=== PATIENT | female | born 1970 | race Caucasian/White ===

== ENCOUNTER 2020-12-29 11:12 | Inpatient (IN) | payer MEDICAID ==
[~2020-12-29] VITALS: Ht 160 cm; Wt 103.2 kg
[~2020-12-29 11:12] MED LIST: BACL-63 PO; CARI350T22 PO; CLON-857 PO; GABA-339 PO; OXY20CRT PO
[2020-12-29] MEDS ORDERED: ACETAMINOPHEN 325 MG TAB PO ONE (12:00)
[2020-12-29] MEDS ORDERED: SODIUM CHLORIDE 0.9% 1,000 ML IV ONE (12:00)
[2020-12-29] MEDS ORDERED: KETOROLAC TROMETH 30 MG/ML 1ML VIAL IV ONE (12:00)
[2020-12-29] MEDS ORDERED: cefTRIAXone 1GM/50ML D5W 50 ML IV ONE (12:00)
[2020-12-29 13:49] LABS: Urine Bacteria FEW /hpf (None Seen); Urine Blood TRACE /uL (Negative); Urine Specific Gravity 1.015 (1.001-1.035); Urine WBC 96 /hpf (0 - 5)
[2020-12-29] MEDS ORDERED: HYDROmorphone HCL 2 MG/ML VL IV ONE ×2 (14:00→18:30)
[2020-12-29 14:05] LABS: Basophils # (auto) 0.1 10 ^3/uL (0-0.2); Basophils % (auto) 1.1 % (0.0-2.0); Eosinophils # (auto) 0.2 10 ^3/uL (0-0.8); Eosinophils % (auto) 1.9 % (0.0-7.0); Hematocrit 37.8 % (36.0-46.0); Hemoglobin 12.3 g/dL (12.2-16.2); Lymphocytes # (auto) 1.2 10 ^3/uL (0.4-5.4); Lymphocytes % (auto) 14.5 % (10.0-50.0); Mean Corpuscular Hemoglobin 24.4 pg (28.0-32.0); Mean Corpuscular Hgb Conc. 32.5 g/dL (32.0-36.0); Monocytes # (auto) 0.6 10 ^3/uL (0-1.3); Monocytes % (auto) 7.8 % (0.0-12.0); Neutrophils # (auto) 6.2 10 ^3/uL (1.6-8.6); Neutrophils % (auto) 74.7 % (37.0-80.0); Red Blood Cells 5.05 10^6/uL (4.0-5.20); Red Cell Distribution Width 15.9 % (11.8-14.3); White Blood Cell 8.3 10^3/uL (4.4-10.8)
[2020-12-29 14:19] LABS: Chloride 107 mmol/L (98-107); Potassium 3.9 mmol/L (3.5-5.1); Sodium 136 mmol/L (136-145)
[2020-12-29 14:28] LABS: Alanine Aminotransferase 23 U/L (13-56); Albumin 2.9 g/dL (3.4-5.0); Alkaline Phosphatase 116 U/L (45-117); Anion Gap 3 (5-15); Aspartate Aminotransferase 15 U/L (15-37); BUN/Creatinine Ratio 29.3; Bilirubin, Total 0.4 mg/dL (0.2-1.0); Blood Urea Nitrogen 17 mg/dL (7-18); Calcium 9.9 mg/dL (8.5-10.1); Carbon Dioxide 26 mmol/L (21-32); GFR African American 141 mL/min; GFR Non-African American 116 mL/min; Glucose 99 mg/dL (74-106); Total Protein 8.3 g/dL (6.4-8.2)
[2020-12-29] MEDS: cefTRIAXone 1GM/50ML D5W 50 ML IV ONE (14:45)
[2020-12-29] MEDS ORDERED: LACTATED RINGER'S 1,000 ML IV ONE (16:30)
[2020-12-29] MEDS ORDERED: NITROGLYCERIN 0.4 MG SL TAB SL PRN ×2 (16:30→18:30)
[2020-12-29] MEDS ORDERED: MORPHINE SULFATE INJECTION 2 MG/ML SYRG IV PRN ×2 (16:30→18:30)
[2020-12-29] MEDS ORDERED: HYDROcodone-ACET 5/325MG TAB PO PRN (18:30)
[2020-12-29] MEDS ORDERED: PIPERACILLIN-TAZOB 3.375GM 100 ML IV ONE (18:30)
[2020-12-29] MEDS ORDERED: DOCUSATE SOD 100 MG CAP PO PRN (18:30)
[2020-12-29] MEDS ORDERED: ACETAMINOPHEN 325 MG TAB PO PRN (18:30)
[2020-12-29] MEDS ORDERED: LORazepam 0.5 MG TAB PO PRN (18:30)
[2020-12-29] MEDS ORDERED: VANCOMYCIN PER PHARMACY 0 MG IV SCH (18:30)
[2020-12-29] MEDS ORDERED: ENOXAPARIN SOD 100 MG/1 ML SYRINGE SC ONE (18:30)
[2020-12-29] MEDS ORDERED: LORazepam 2MG/ML-1ML VIAL IV PRN (18:30)
[2020-12-29] MEDS ORDERED: ALUM & MAG HYDROX-SIMETH LIQ(MAALOX) 30 ML PO PRN (18:30)
[2020-12-29] MEDS: SODIUM CHLORIDE 0.9% 1,000 ML IV SCH (19:14)
[2020-12-29 20:00] LABS: Amphetamine Screen, Urine NEGATIVE (NEGATIVE); Barbiturate Scree,Urine NEGATIVE (NEGATIVE); Cannabinoid Screen, Urine NEGATIVE (NEGATIVE); Cocaine Screen, Urine NEGATIVE (NEGATIVE); Opiate Scree,Urine NEGATIVE (NEGATIVE); Phencyclidine Screen, Urine NEGATIVE (NEGATIVE)
[2020-12-29 20:09] LABS: Alcohol, Urine < 3.0 mg/dL (0-10)
[2020-12-29 20:22] LABS: Benzodiazephine Screen, Urine POSITIVE (NEGATIVE)
[2020-12-29] MEDS: ATORVASTATIN 20 MG TAB PO SCH (22:00)
[2020-12-29] MEDS: FAMOTIDINE (10MG/ML) 2ML VL IV SCH (22:00)
[2020-12-29] MEDS: VANCOMYCIN 1GM/250ML 250 ML IV SCH (23:00)
[2020-12-30 01:21] LABS: Cholesterol 154 mg/dL (< 200); HDL Cholesterol 41 mg/dL (40-59); LDL Cholesterol 100 mg/dL (< 100); Triglycerides 91 mg/dL (< 150)
[2020-12-30] MEDS: MORPHINE SULFATE INJECTION 2 MG/ML SYRG IV PRN ×2 (05:31→09:02)
[2020-12-30] MEDS: PIPERACILLIN-TAZOB 3.375GM 100 ML IV SCH ×4 (06:00→19:30)
[2020-12-30] MEDS: ENOXAPARIN SOD 100 MG/1 ML SYRINGE SC SCH ×2 (06:48→18:23)
[2020-12-30 07:53] LABS: Eosinophils # (auto) 0.3 10 ^3/uL (0-0.8); Monocytes # (auto) 0.5 10 ^3/uL (0-1.3); Neutrophils # (auto) 4.1 10 ^3/uL (1.6-8.6); White Blood Cell 5.9 10^3/uL (4.4-10.8)
[2020-12-30 07:55] LABS: Basophils # (auto) 0 10 ^3/uL (0-0.2); Basophils % (auto) 0.7 % (0.0-2.0); Eosinophils % (auto) 4.8 % (0.0-7.0); Hematocrit 34.2 % (36.0-46.0); Hemoglobin 10.9 g/dL (12.2-16.2); Lymphocytes % (auto) 17.2 % (10.0-50.0); Mean Corpuscular Hemoglobin 24.6 pg (28.0-32.0); Mean Corpuscular Hgb Conc. 32.1 g/dL (32.0-36.0); Mean Corpuscular Volume 76.8 fL (80.0-100.0); Neutrophils % (auto) 69.3 % (37.0-80.0); Red Blood Cells 4.45 10^6/uL (4.0-5.20); Red Cell Distribution Width 16.2 % (11.8-14.3)
[2020-12-30 08:04] LABS: Albumin 2.5 g/dL (3.4-5.0); Calcium 9.4 mg/dL (8.5-10.1); Magnesium 2.6 mg/dL (1.6-2.6); Potassium 3.9 mmol/L (3.5-5.1)
[2020-12-30 08:08] LABS: BUN/Creatinine Ratio 29.8; Bilirubin, Total 0.4 mg/dL (0.2-1.0); Phosphorus 3.3 mg/dL (2.5-4.90); Total Protein 7.3 g/dL (6.4-8.2)
[2020-12-30 08:12] LABS: INR 1.22 (0.9-1.15); Partial Thromboplastin Time 40.2 sec (23.6-33.0)
[2020-12-30] MEDS: SODIUM CHLORIDE 0.9% 1,000 ML IV SCH (08:40)
[2020-12-30] MEDS: ONDANSETRON HCL 4 MG/2 ML VIAL IV PRN (08:57)
[2020-12-30] MEDS: VANCOMYCIN 1GM/250ML 250 ML IV SCH ×2 (12:27→18:23)
[2020-12-30] MEDS: FAMOTIDINE (10MG/ML) 2ML VL IV SCH ×2 (12:27→22:45)
[2020-12-30] MEDS: ASPirin 81 mg TAB PO SCH (12:28)
[2020-12-30] MEDS: DULoxetine HCL 30 MG CAP PO SCH (12:28)
[2020-12-30] MEDS: GABAPENTIN 300 MG CAP PO SCH ×2 (13:49→22:45)
[2020-12-30] MEDS: BACLOFEN 10 MG TAB PO SCH ×2 (13:49→22:45)
[2020-12-30] MEDS: HYDROmorphone HCL 2 MG/ML VL IV PRN ×3 (13:49→22:47)
[2020-12-30 13:50] VITALS: BP 104/60
[2020-12-30 22:00] VITALS: BP 99/57
[2020-12-30] MEDS: ATORVASTATIN 20 MG TAB PO SCH (22:45)
[2020-12-31] MEDS: PIPERACILLIN-TAZOB 3.375GM 100 ML IV SCH ×5 (00:33→23:03)
[2020-12-31] MEDS: HYDROmorphone HCL 2 MG/ML VL IV PRN ×5 (02:54→21:31)
[2020-12-31] MEDS: VANCOMYCIN 1GM/250ML 250 ML IV SCH ×2 (03:00→13:00)
[2020-12-31] MEDS: SODIUM CHLORIDE 0.9% 1,000 ML IV SCH ×2 (04:11→21:04)
[2020-12-31] MEDS: BACLOFEN 10 MG TAB PO SCH ×3 (07:02→21:04)
[2020-12-31] MEDS: GABAPENTIN 300 MG CAP PO SCH ×3 (07:02→21:05)
[2020-12-31] MEDS: ENOXAPARIN SOD 100 MG/1 ML SYRINGE SC SCH ×2 (07:03→18:37)
[2020-12-31 09:00] VITALS: BP 133/69
[2020-12-31] MEDS: FAMOTIDINE (10MG/ML) 2ML VL IV SCH ×2 (11:12→21:04)
[2020-12-31] MEDS: DULoxetine HCL 30 MG CAP PO SCH (11:13)
[2020-12-31] MEDS: ASPirin 81 mg TAB PO SCH (11:13)
[2020-12-31 13:00] VITALS: BP 129/61
[2020-12-31] MEDS ORDERED: VANCOMYCIN 1GM/250ML 250 ML IV SCH (16:00)
[2020-12-31 17:00] VITALS: BP 142/69
[2020-12-31] MEDS: ATORVASTATIN 20 MG TAB PO SCH (21:05)
[2020-12-31 22:00] VITALS: BP 95/56
[2020-12-31] MEDS: oxyCODONE ER 20 MG TAB PO SCH (22:29)
[2021-01-01] MEDS: HYDROmorphone HCL 2 MG/ML VL IV PRN ×6 (03:04→19:04)
[2021-01-01 05:00] VITALS: BP 99/54
[2021-01-01] MEDS: PIPERACILLIN-TAZOB 3.375GM 100 ML IV SCH ×4 (05:30→23:06)
[2021-01-01] MEDS: GABAPENTIN 300 MG CAP PO SCH ×3 (05:39→21:07)
[2021-01-01] MEDS: BACLOFEN 10 MG TAB PO SCH ×3 (05:39→21:06)
[2021-01-01] MEDS: ENOXAPARIN SOD 100 MG/1 ML SYRINGE SC SCH ×2 (05:39→19:04)
[2021-01-01 07:15] LABS: Basophils # (auto) 0 10 ^3/uL (0-0.2); Eosinophils # (auto) 0.3 10 ^3/uL (0-0.8); Eosinophils % (auto) 6.9 % (0.0-7.0); Hematocrit 30.8 % (36.0-46.0); Hemoglobin 10.3 g/dL (12.2-16.2); Lymphocytes # (auto) 0.9 10 ^3/uL (0.4-5.4); Lymphocytes % (auto) 21.5 % (10.0-50.0); Mean Corpuscular Hgb Conc. 33.3 g/dL (32.0-36.0); Mean Corpuscular Volume 74.9 fL (80.0-100.0); Monocytes # (auto) 0.4 10 ^3/uL (0-1.3); Monocytes % (auto) 8.7 % (0.0-12.0); Neutrophils # (auto) 2.6 10 ^3/uL (1.6-8.6); Neutrophils % (auto) 61.9 % (37.0-80.0); Nucleated Red Blood Cells % 0.2 %; Red Blood Cells 4.11 10^6/uL (4.0-5.20); Red Cell Distribution Width 15.8 % (11.8-14.3); White Blood Cell 4.3 10^3/uL (4.4-10.8)
[2021-01-01 07:16] LABS: INR 1.17 (0.9-1.15)
[2021-01-01 08:29] LABS: BUN/Creatinine Ratio 15.1; Calcium 9.1 mg/dL (8.5-10.1); Magnesium 2.5 mg/dL (1.6-2.6); Potassium 3.9 mmol/L (3.5-5.1)
[2021-01-01] MEDS ORDERED: ROPIVACAINE 0.5% (5MG/ML) 20ML AMPULE IJ ONE (08:35)
[2021-01-01] MEDS ORDERED: ceFAZolin 1GM VL ONE ×2 (08:35→09:27)
[2021-01-01] MEDS ORDERED: fentaNYL CITRATE 100 MCG/2 ML VL ONE (08:50)
[2021-01-01] MEDS ORDERED: MIDAZOLAM HCL 2MG/2ML 2ml VIAL (1mg/ml) ONE (08:50)
[2021-01-01] MEDS ORDERED: MEPERIDINE HCL (25 MG/ML) 1ML VIAL ONE (08:50)
[2021-01-01] MEDS ORDERED: LABETALOL HCL 5 MG/ML 4ML SYRINGE IV PRN ×2 (09:00→09:45)
[2021-01-01] MEDS ORDERED: ONDANSETRON HCL 4 MG/2 ML VIAL IV PRN ×2 (09:00→09:45)
[2021-01-01] MEDS ORDERED: MIDAZOLAM HCL 2MG/2ML 2ml VIAL (1mg/ml) IV PRN ×2 (09:00→09:45)
[2021-01-01] MEDS ORDERED: HYDROmorphone HCL 2 MG/ML VL IV PRN (09:00)
[2021-01-01] MEDS ORDERED: hydrALAZINE HCL 20 MG/ML VL IV PRN ×2 (09:00→09:45)
[2021-01-01] MEDS ORDERED: MORPHINE SULFATE 4 MG/ML SYR/VIAL IV PRN ×2 (09:00→09:45)
[2021-01-01] MEDS ORDERED: ePHEDrine SULFATE 50 MG/ML AMP IV PRN ×2 (09:00→09:45)
[2021-01-01] MEDS ORDERED: DexAMETHasone SOD PHOS 10MG/1ML VIAL INJ ONE (09:24)
[2021-01-01] MEDS ORDERED: PROPOFOL 10 MG/ML 20 ML IV ONE (09:24)
[2021-01-01] MEDS ORDERED: SILVER SULFADIAZINE 1 % TOPICAL CREAM 50GM TOP ONE (09:29)
[2021-01-01] MEDS ORDERED: fentaNYL CITRATE 100 MCG/2 ML VL IV PRN (09:45)
[2021-01-01 10:54] VITALS: BP 114/56
[2021-01-01] MEDS: DULoxetine HCL 30 MG CAP PO SCH (11:29)
[2021-01-01] MEDS: FAMOTIDINE (10MG/ML) 2ML VL IV SCH ×2 (11:29→21:06)
[2021-01-01] MEDS: VANCOMYCIN 1GM/250ML 250 ML IV SCH (11:30)
[2021-01-01] MEDS: oxyCODONE ER 20 MG TAB PO SCH ×2 (11:30→21:07)
[2021-01-01 13:00] VITALS: BP 114/56
[2021-01-01] MEDS: SODIUM CHLORIDE 0.9% 1,000 ML IV SCH (13:06)
[2021-01-01 17:00] VITALS: BP 136/74
[2021-01-01] MEDS: ATORVASTATIN 20 MG TAB PO SCH (21:07)
[2021-01-01 22:00] VITALS: BP 138/62
[2021-01-02] MEDS: SODIUM CHLORIDE 0.9% 1,000 ML IV SCH ×2 (00:54→05:39)
[2021-01-02] MEDS: HYDROmorphone HCL 2 MG/ML VL IV PRN ×4 (01:04→19:11)
[2021-01-02] MEDS: VANCOMYCIN 1GM/250ML 250 ML IV SCH ×2 (03:02→19:10)
[2021-01-02 05:00] VITALS: BP 127/58
[2021-01-02] MEDS: GABAPENTIN 300 MG CAP PO SCH ×3 (05:39→21:48)
[2021-01-02] MEDS: BACLOFEN 10 MG TAB PO SCH ×3 (05:39→21:48)
[2021-01-02] MEDS: PIPERACILLIN-TAZOB 3.375GM 100 ML IV SCH ×3 (05:39→18:33)
[2021-01-02] MEDS: ENOXAPARIN SOD 100 MG/1 ML SYRINGE SC SCH ×2 (05:40→18:33)
[2021-01-02 07:16] LABS: Basophils # (auto) 0 10 ^3/uL (0-0.2); Basophils % (auto) 0.5 % (0.0-2.0); Eosinophils # (auto) 0 10 ^3/uL (0-0.8); Eosinophils % (auto) 0.4 % (0.0-7.0); Hematocrit 30.3 % (36.0-46.0); Hemoglobin 9.8 g/dL (12.2-16.2); Lymphocytes % (auto) 14.7 % (10.0-50.0); Mean Corpuscular Hemoglobin 24.4 pg (28.0-32.0); Mean Corpuscular Hgb Conc. 32.4 g/dL (32.0-36.0); Mean Corpuscular Volume 75.2 fL (80.0-100.0); Monocytes # (auto) 0.6 10 ^3/uL (0-1.3); Monocytes % (auto) 8.3 % (0.0-12.0); Neutrophils # (auto) 5.1 10 ^3/uL (1.6-8.6); Neutrophils % (auto) 76.1 % (37.0-80.0); Nucleated Red Blood Cells % 0.1 %; Red Blood Cells 4.04 10^6/uL (4.0-5.20); Red Cell Distribution Width 15.8 % (11.8-14.3); White Blood Cell 6.7 10^3/uL (4.4-10.8)
[2021-01-02 07:33] LABS: Calcium 8.9 mg/dL (8.5-10.1); Potassium 3.5 mmol/L (3.5-5.1)
[2021-01-02 07:35] LABS: BUN/Creatinine Ratio 19.7
[2021-01-02] MEDS: FAMOTIDINE (10MG/ML) 2ML VL IV SCH ×2 (08:48→21:48)
[2021-01-02] MEDS: DULoxetine HCL 30 MG CAP PO SCH (08:49)
[2021-01-02] MEDS: oxyCODONE ER 20 MG TAB PO SCH ×2 (08:59→21:52)
[2021-01-02 09:00] VITALS: BP 117/56
[2021-01-02 13:00] VITALS: BP 95/41
[2021-01-02] MEDS: ONDANSETRON HCL 4 MG/2 ML VIAL IV PRN (13:01)
[2021-01-02 17:00] VITALS: BP 137/55
[2021-01-02] MEDS: ATORVASTATIN 20 MG TAB PO SCH (21:49)
[2021-01-02 22:00] VITALS: BP 106/60
[2021-01-03] MEDS: HYDROmorphone HCL 2 MG/ML VL IV PRN ×4 (01:13→19:24)
[2021-01-03 04:44] VITALS: BP 101/59
[2021-01-03] MEDS: GABAPENTIN 300 MG CAP PO SCH ×3 (06:04→21:07)
[2021-01-03] MEDS: BACLOFEN 10 MG TAB PO SCH ×3 (06:05→21:07)
[2021-01-03] MEDS: ENOXAPARIN SOD 100 MG/1 ML SYRINGE SC SCH ×2 (06:06→18:15)
[2021-01-03] MEDS: PIPERACILLIN-TAZOB 3.375GM 100 ML IV SCH ×4 (06:06→18:15)
[2021-01-03 06:31] LABS: Hematocrit 29.1 % (36.0-46.0); Hemoglobin 9.4 g/dL (12.2-16.2)
[2021-01-03 09:00] VITALS: BP 117/79
[2021-01-03] MEDS: FAMOTIDINE (10MG/ML) 2ML VL IV SCH ×2 (09:48→21:07)
[2021-01-03] MEDS: oxyCODONE ER 20 MG TAB PO SCH ×2 (09:48→21:08)
[2021-01-03] MEDS: DULoxetine HCL 30 MG CAP PO SCH (09:48)
[2021-01-03] MEDS: VANCOMYCIN 1GM/250ML 250 ML IV SCH (11:28)
[2021-01-03 13:00] VITALS: BP 101/64
[2021-01-03] MEDS: SODIUM CHLORIDE 0.9% 1,000 ML IV SCH (16:33)
[2021-01-03 16:37] VITALS: BP 95/59
[2021-01-03] MEDS: ATORVASTATIN 20 MG TAB PO SCH (21:08)
[2021-01-03 22:00] VITALS: BP 115/72
[2021-01-04] MEDS: PIPERACILLIN-TAZOB 3.375GM 100 ML IV SCH ×3 (00:09→11:54)
[2021-01-04] MEDS: HYDROmorphone HCL 2 MG/ML VL IV PRN ×4 (01:23→20:42)
[2021-01-04] MEDS: VANCOMYCIN 1GM/250ML 250 ML IV SCH (03:25)
[2021-01-04 05:00] VITALS: BP 96/57
[2021-01-04] MEDS: GABAPENTIN 300 MG CAP PO SCH ×3 (05:38→23:53)
[2021-01-04] MEDS: BACLOFEN 10 MG TAB PO SCH ×3 (05:38→23:52)
[2021-01-04] MEDS: ENOXAPARIN SOD 100 MG/1 ML SYRINGE SC SCH ×2 (05:39→17:56)
[2021-01-04] MEDS: SODIUM CHLORIDE 0.9% 1,000 ML IV SCH (08:30)
[2021-01-04 09:00] VITALS: BP 110/73
[2021-01-04] MEDS: DULoxetine HCL 30 MG CAP PO SCH (10:10)
[2021-01-04] MEDS: FAMOTIDINE (10MG/ML) 2ML VL IV SCH ×2 (10:10→23:52)
[2021-01-04] MEDS: oxyCODONE ER 20 MG TAB PO SCH ×2 (10:11→23:53)
[2021-01-04] MEDS ORDERED: LINEZOLID 600MG/300ML 300 ML IV ONE (12:15)
[2021-01-04 13:00] VITALS: BP 119/76
[2021-01-04] MEDS: MEROPENEM 1GM IVPB 100 ML IV SCH ×2 (13:53→23:51)
[2021-01-04 16:44] VITALS: BP 110/64
[2021-01-04 22:00] VITALS: BP 104/60
[2021-01-04] MEDS: LINEZOLID 600MG/300ML 300 ML IV SCH (23:52)
[2021-01-04] MEDS: ATORVASTATIN 20 MG TAB PO SCH (23:53)
[2021-01-05] MEDS: HYDROmorphone HCL 2 MG/ML VL IV PRN ×4 (02:56→21:26)
[2021-01-05 05:00] VITALS: BP 102/71
[2021-01-05] MEDS: BACLOFEN 10 MG TAB PO SCH ×3 (06:29→20:56)
[2021-01-05] MEDS: MEROPENEM 1GM IVPB 100 ML IV SCH ×3 (06:29→23:00)
[2021-01-05] MEDS: SODIUM CHLORIDE 0.9% 1,000 ML IV SCH ×2 (06:29→18:33)
[2021-01-05] MEDS: ENOXAPARIN SOD 100 MG/1 ML SYRINGE SC SCH ×2 (06:30→18:33)
[2021-01-05] MEDS: GABAPENTIN 300 MG CAP PO SCH ×3 (06:30→20:57)
[2021-01-05 09:00] VITALS: BP 100/66
[2021-01-05] MEDS: oxyCODONE ER 20 MG TAB PO SCH ×2 (10:24→23:00)
[2021-01-05] MEDS: LINEZOLID 600MG/300ML 300 ML IV SCH ×2 (10:24→20:56)
[2021-01-05] MEDS: DULoxetine HCL 30 MG CAP PO SCH (10:24)
[2021-01-05] MEDS: FAMOTIDINE (10MG/ML) 2ML VL IV SCH ×2 (10:24→20:56)
[2021-01-05 13:00] VITALS: BP 97/53
[2021-01-05 17:00] VITALS: BP 93/57
[2021-01-05] MEDS: ATORVASTATIN 20 MG TAB PO SCH (20:57)
[2021-01-05 22:00] VITALS: BP 122/66
[2021-01-06] VITALS (7 sets, daily range): BP systolic 96–130; BP diastolic 61–79
[2021-01-06] MEDS: HYDROmorphone HCL 2 MG/ML VL IV PRN ×2 (03:05→11:39)
[2021-01-06] MEDS: MEROPENEM 1GM IVPB 100 ML IV SCH (05:40)
[2021-01-06] MEDS: BACLOFEN 10 MG TAB PO SCH ×3 (05:41→21:21)
[2021-01-06] MEDS: GABAPENTIN 300 MG CAP PO SCH ×3 (05:41→21:22)
[2021-01-06] MEDS: ENOXAPARIN SOD 100 MG/1 ML SYRINGE SC SCH ×2 (05:56→18:29)
[2021-01-06] MEDS: FAMOTIDINE (10MG/ML) 2ML VL IV SCH ×2 (09:38→21:21)
[2021-01-06] MEDS: oxyCODONE ER 20 MG TAB PO SCH ×2 (09:38→21:22)
[2021-01-06] MEDS: LINEZOLID 600MG/300ML 300 ML IV SCH ×2 (09:38→21:21)
[2021-01-06] MEDS: DULoxetine HCL 30 MG CAP PO SCH (09:39)
[2021-01-06] MEDS: SODIUM CHLORIDE 0.9% 1,000 ML IV SCH (09:40)
[2021-01-06] MEDS ORDERED: ERTAPENEM SOD INJ 1 GM in SODIUM CHL 0.9% 50 ML IV ONE (10:45)
[2021-01-06] MEDS ORDERED: levoFLOXacin 500 MG TAB PO ONE (10:45)
[2021-01-06] MEDS ORDERED: LEVO500T31 PO (10:47)
[2021-01-06] MEDS ORDERED: LINE1TAB6 PO (10:47)
[2021-01-06] MEDS ORDERED: RIV20T PO (11:23)
[2021-01-06] MEDS ORDERED: DULO60CA PO (11:23)
[2021-01-06] MEDS ORDERED: TRAZ50TA2 PO (11:23)
[2021-01-06 12:14] LABS: Basophils # (auto) 0 10 ^3/uL (0-0.2); Eosinophils # (auto) 0.2 10 ^3/uL (0-0.8); Hemoglobin 10.6 g/dL (12.2-16.2); Lymphocytes # (auto) 0.7 10 ^3/uL (0.4-5.4); Mean Corpuscular Hemoglobin 24.5 pg (28.0-32.0); Mean Corpuscular Hgb Conc. 32.3 g/dL (32.0-36.0); Mean Corpuscular Volume 75.7 fL (80.0-100.0); Monocytes # (auto) 0.3 10 ^3/uL (0-1.3)
[2021-01-06 12:16] LABS: Basophils % (auto) 0.8 % (0.0-2.0); Eosinophils % (auto) 3.9 % (0.0-7.0); Hematocrit 32.8 % (36.0-46.0); Lymphocytes % (auto) 15.6 % (10.0-50.0); Monocytes % (auto) 6.7 % (0.0-12.0); Neutrophils # (auto) 3.3 10 ^3/uL (1.6-8.6); Nucleated Red Blood Cells % 0.1 %; Red Blood Cells 4.33 10^6/uL (4.0-5.20); White Blood Cell 4.5 10^3/uL (4.4-10.8)
[2021-01-06 12:31] LABS: BUN/Creatinine Ratio 12.3; Magnesium 2.4 mg/dL (1.6-2.6)
[2021-01-06] MEDS ORDERED: SACC250C PO (12:46)
[2021-01-06] MEDS ORDERED: LEV50T PO (12:47)
[2021-01-06] MEDS: ATORVASTATIN 20 MG TAB PO SCH (21:22)
[2021-01-07] MEDS: ONDANSETRON HCL 4 MG/2 ML VIAL IV PRN ×2 (01:46→06:06)
[2021-01-07] MEDS: HYDROcodone-ACET 5/325MG TAB PO PRN ×4 (01:46→17:39)
[2021-01-07] MEDS: SODIUM CHLORIDE 0.9% 1,000 ML IV SCH ×2 (02:30→21:47)
[2021-01-07 05:00] VITALS: BP 83/53
[2021-01-07] MEDS: GABAPENTIN 300 MG CAP PO SCH ×3 (06:06→21:33)
[2021-01-07] MEDS: BACLOFEN 10 MG TAB PO SCH ×3 (06:06→21:32)
[2021-01-07] MEDS: ENOXAPARIN SOD 100 MG/1 ML SYRINGE SC SCH ×2 (06:06→17:40)
[2021-01-07 07:45] VITALS: BP 91/50
[2021-01-07 09:00] VITALS: BP 91/50
[2021-01-07] MEDS: oxyCODONE ER 20 MG TAB PO SCH ×2 (10:33→21:34)
[2021-01-07] MEDS: DULoxetine HCL 30 MG CAP PO SCH (10:33)
[2021-01-07] MEDS: levoFLOXacin 500 MG TAB PO SCH (10:33)
[2021-01-07] MEDS: LINEZOLID 600MG/300ML 300 ML IV SCH ×2 (10:34→21:34)
[2021-01-07] MEDS: FAMOTIDINE (10MG/ML) 2ML VL IV SCH ×2 (10:34→21:32)
[2021-01-07 13:00] VITALS: BP 91/59
[2021-01-07] MEDS: ERTAPENEM SOD INJ 1 GM in SODIUM CHL 0.9% 50 ML IV SCH (13:01)
[2021-01-07 17:00] VITALS: BP 103/67
[2021-01-07] MEDS: ATORVASTATIN 20 MG TAB PO SCH (21:33)
[2021-01-07 22:00] VITALS: BP 114/61
[2021-01-08] MEDS: HYDROcodone-ACET 5/325MG TAB PO PRN ×2 (03:18→14:40)
[2021-01-08 05:00] VITALS: BP 98/59
[2021-01-08] MEDS: BACLOFEN 10 MG TAB PO SCH ×2 (05:45→14:32)
[2021-01-08] MEDS: ENOXAPARIN SOD 100 MG/1 ML SYRINGE SC SCH ×2 (05:46→18:38)
[2021-01-08] MEDS: GABAPENTIN 300 MG CAP PO SCH ×2 (05:46→14:32)
[2021-01-08 08:00] VITALS: BP 87/52
[2021-01-08 09:00] VITALS: BP 87/52
[2021-01-08] MEDS: ERTAPENEM SOD INJ 1 GM in SODIUM CHL 0.9% 50 ML IV SCH (09:26)
[2021-01-08] MEDS: levoFLOXacin 500 MG TAB PO SCH (10:04)
[2021-01-08] MEDS: oxyCODONE ER 20 MG TAB PO SCH (10:04)
[2021-01-08] MEDS: LINEZOLID 600MG/300ML 300 ML IV SCH (10:04)
[2021-01-08] MEDS: DULoxetine HCL 30 MG CAP PO SCH (10:05)
[2021-01-08] MEDS: FAMOTIDINE (10MG/ML) 2ML VL IV SCH (10:05)
[2021-01-08] MEDS: SODIUM CHLORIDE 0.9% 1,000 ML IV SCH (11:50)
[2021-01-08 13:00] VITALS: BP 100/63
[2021-01-08 17:00] VITALS: BP 91/50
== END 2021-01-08 20:15 | disposition home or self-care (01) | DRG 710 ==
LOC: ER 11:12 → EDBD 11:12 → TELE 16:22 → TELE-EAST 12-30 09:04 → CENTRAL 01-04 11:03 → TELE-CENTR 01-04 11:51
PROVIDERS: ADMIT Hospitalist; ATTEND Internal Medicine
PROC: 0QBL0ZZ Excision of Right Tarsal, Open Approach (ICD-10-PCS; 2021-01-01)
PROC: 0QBM0ZZ Excision of Left Tarsal, Open Approach (ICD-10-PCS; 2021-01-01)
PROC: 0JBR0ZZ Excision of Left Foot Subcutaneous Tissue and Fascia, Open Approach (ICD-10-PCS; principal; 2021-01-01 08:58)
DX: A41.9 Sepsis, unspecified organism (principal); R65.21 Severe sepsis with septic shock; E44.0 Moderate protein-calorie malnutrition; I82.402 Acute embolism and thrombosis of unspecified deep veins of left lower extremity; G82.20 Paraplegia, unspecified; I96 Gangrene, not elsewhere classified; E66.01 Morbid (severe) obesity due to excess calories; E78.5 Hyperlipidemia, unspecified; F11.20 Opioid dependence, uncomplicated; F32.9 Major depressive disorder, single episode, unspecified; F41.9 Anxiety disorder, unspecified; L97.529 Non-pressure chronic ulcer of other part of left foot with unspecified severity; M21.372 Foot drop, left foot; M79.7 Fibromyalgia; M85.80 Other specified disorders of bone density and structure, unspecified site; S91.312A Laceration without foreign body, left foot, initial encounter; L03.116 Cellulitis of left lower limb; Z20.822 Contact with and (suspected) exposure to COVID-19; L03.115 Cellulitis of right lower limb; N10 Acute pyelonephritis; L97.519 Non-pressure chronic ulcer of other part of right foot with unspecified severity; M86.172 Other acute osteomyelitis, left ankle and foot; M86.171 Other acute osteomyelitis, right ankle and foot; E03.9 Hypothyroidism, unspecified; F32.A Depression, unspecified; R53.81 Other malaise; G89.4 Chronic pain syndrome; R73.03 Prediabetes; Z79.01 Long term (current) use of anticoagulants; Z68.41 Body mass index [BMI] 40.0-44.9, adult; Z87.440 Personal history of urinary (tract) infections
CPT/HCPCS: 36415; 71045; 73620; 80048; 80053; 80061; 80202; 80307; 81001; 81025; 82306; 82565; 83036; 83605; 83735; 83880; 84100; 84443; 84484; 85014; 85018; 85025; 85610; 85730; 86850; 86900; 86901; 87040; 87070; 87075; 87077; 87086; 87186; 87205; 87426; 93005; 93306; 96365; 96375; G0378; J0690; J0696; J1100; J1335; J1885; J2185; J2250; J2405; J2543; J2704; J3490